=== PATIENT | male | born 1995 | race Caucasian/White ===

== ENCOUNTER 2025-05-24 23:03 | Emergency (ER) | payer BC ==
[~2025-05-24] VITALS: Ht 188 cm; Wt 94.9 kg
--- NOTE | 2025-05-24 23:23 | ELECTROCARDIOGRAPH REPORT ---
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 DONALD Starr Measurements Intervals [place] Rate: 47 P: 49 AR: 168 QRS: 98 QRSD: 108 T: -8 QT: 430 QTc: 381 Interpretive Statements Sinus bradycardia Consider right ventricular hypertrophy Borderline T abnormalities, inferior leads Baseline wander in lead(s) V3 Electronically Signed On 05-25-2025 17:34:[address] DONALD Starr Please click the below link to view image of tracing.
[2025-05-24 23:35] LABS: MEAN PLATELET VOLUME 8.6 FL (7.4-10.4); RED CELL DISTRIBUTION WIDTH 13.6 % (11.5-14.5)
--- NOTE | 2025-05-24 23:54 | RADIOLOGY REPORT ---
EXAM: DI CHEST,SINGLE VIEW TECHNIQUE: Single frontal chest radiograph CLINICAL HISTORY: CP COMPARISON: None FINDINGS/IMPRESSION: The lungs are clear. The cardiomediastinal silhouette is unremarkable. No pleural effusion or pneumothorax. No acute osseous abnormality.
[2025-05-25 00:09] LABS: CREATININE 1.11 MG/DL (0.60-1.10); PRO BRAIN NATRIURETIC PEPTIDE 31 PG/ML (0-125); TOTAL CARBON DIOXIDE 30.3 MMOL/L (24-32); eCRCL 115 ML/MIN; eGFR 79 ML/MIN
--- NOTE | 2025-05-25 00:46 | Physician Documentation ---
History of Present Illness ~ Chief Complaint: Chest Pain Stated Complaint: CHEST DISCOMFORT Time Seen by MD: 01:25 HPI This is a 29-year-old male who presents with left sternal chest pain and pressure onset 1-1/2 hours prior, patient reports pain is coming and going. Patient reports pain worse with lying down. Patient reports no personal cardiac history however reports significant family cardiac history. History as above. Patient denies smoking high blood pressure high cholesterol or diabetes. Patient was watching TV when symptoms began. Denies one-sided leg pain. 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 Medication Reconciliation Allergies: Coded Allergies: bee venom protein (honey bee) (Verified Allergy, Unknown, 05/24/25) Past Medical History Past Medical History: No Pertinent History Review of Systems ROS As stated above in the HPI, otherwise all systems are reviewed and negative. Physical Exam Vital Signs: Temperature: 98.2, Source: Oral, Heart Rate: 47, Respiratory Rate: 16, BP: 126/71, Pulse Oximetry: 100, Weight: 94.900 Oxygen Flow Rate: 0 Physical Exam General: Patient is awake, alert, oriented x4 in no acute distress and well appearing.~ Head: Normocephalic and atraumatic. Eyes: Conjunctival normal. EOMI. PERRL. ENT: Mucous membranes moist. Neck: Supple, trachea is midline. Chest: Clear to auscultation bilaterally without rales, rhonchi, or wheezes. There is no accessory muscle use or retractions. Cardiac: RRR without murmurs, gallops, or rubs. Extremities: Normal strength. Normal range of motion. No deformities or edema. No calf tenderness to palpation Progress Results/Orders Results/Orders Orders - ALEK DOS SANTOS MD Chest,Single View (05/24/25 23:44) Monitor (05/24/25 23:21) Saline Lock (05/24/25 23:21) Oxygen (05/24/25 23:21) Hs Troponin I W Calculations (05/25/25 02:21) Electrocardiogram (05/25/25 ) Completed Orders - ALEK DOS SANTOS MD Chest,Single View (05/24/25 23:44) Cbc/Diff (05/24/25 23:21) BMP (05/24/25 23:21) PBNP (05/24/25 23:21) Electrocardiogram (05/24/25 23:21) Hs Troponin I W Calculations (05/24/25 23:21) Hs Troponin I W Calculations (05/25/25 01:21) Vital Signs 05/24/25 05/25/25 05/25/25 23:14 01:16 01:21 Temp 98.2 Pulse 47 48 Resp 16 14 16 B/P (MAP) 126/71 126/80 (95) Pulse Ox 100 100 O2 Flow Rate 0 Laboratory Tests Test 05/24/25 23:09 05/25/25 01:15 White Blood Count 7.1 Red Blood Count 4.89 Hemoglobin 14.9 Hematocrit 44.0 Mean Corpuscular Volume 89.9 Mean Corpuscular Hemoglobin 30.5 Mean Corpuscular Hemoglobin Concent 33.9 Red Cell Distribution Width 13.6 Platelet Count 259 Mean Platelet Volume 8.6 Neutrophils (%) (Auto) 60.4 Lymphocytes (%) (Auto) 29.6 Monocytes (%) (Auto) 6.7 Eosinophils (%) (Auto) 3.0 Basophils (%) (Auto) 0.3 Neutrophils # (Auto) 4.3 Lymphocytes # (Auto) 2.1 Monocytes # (Auto) 0.5 Eosinophils # (Auto) 0.2 Basophils # (Auto) 0.0 CBC Comment Sodium Level 142 Potassium Level 4.1 Chloride Level 105 Carbon Dioxide Level 30.3 Anion Gap 7 L Blood Urea Nitrogen 18 Creatinine 1.11 H Estimated GFR/1.73 m2 79 BUN/Creatinine Ratio 16.2 Glucose Level 108 H Calcium Level 8.6 Troponin I High Sensitivity 4 4 Pro-B-Type Natriuretic Peptide 31 Albumin 4.3 Chemistry Comments Troponin I High Sens Percent Delta 0 Troponin I Hi Sens Absolute Change 0 EKG/XRAY/CT/US/VASC/MRI EKG : Additional Comment EKG interpreted by myself shows time of 2310, rate 47, sinus bradycardia, normal axis, no ST changes Medical Decision Making Additional information obtaine: N/A Findings Patient presents to the emergency room with chest pain as per HPI. Differenti als include but are not limited to ACS pulmonary embolism aortic pathology musculoskeletal pain anxiety reflux therefore emergent labs and imaging indicated. Labs and imaging reassuring. Patient has a reassuring heart score of 1. No tachycardia or hypoxia or one-sided leg pain and he had not feel patient requires investigation into pulmonary embolism. Patient is far too young for aortic pathology Heart Score: 1 Differential Dx:Considerations: Include: angina, aortic dissection, chest wall pain, cholelithiasis, CHF, costochondritis, esophageal reflux/spasm, gastritis, herpes zoster, myocardial infarction, pericarditis, pleuritis, pancreatitis, pneumonia, pneumothorax, pulmonary embolus, other Departure Disposition: HOME / SELF CARE / HOMELESS Impression: Primary Impression: Chest pain Condition: Stable Discharge Instructions: Nonspecific Chest Pain, Adult Referrals: NO PRIMARY CARE PROVIDER (PCP) Signature Scribe Signature: No scribe Attestation: The note accurately reflects work and decisions made by me.Alek Dos Santos MD 05/25/25 02:02 DIGNA SMITH May 25, 2025 00:46 ALEK DOS SANTOS MD May 25, 2025 01:32
[2025-05-25 02:12] VITALS: BP 122/76; PULSE 46; RESP 13; TEMP 98.2; O2SAT 100
== END 2025-05-25 02:15 | disposition home or self-care (01) ==
LOC: ER 23:04
DX: R07.9 Chest pain, unspecified (principal); Z91.030 Bee allergy status
CPT/HCPCS: 36415; 71045; 80048; 83880; 84484; 85025; 93005; 99285